=== PATIENT | female | born 1945 | race Caucasian/White ===

== ENCOUNTER → 2017-07-06 | Outpatient (CLI) | payer MEDICARE, OTHER ==
[~2017-07-06] MED LIST: ADJUSTABLE COMM1 MIS; AMBI12.5 PO; APIX2.5T PO; CPMMACHINE; DOCU1CAP39 PO; GLIP5TAB8 PO; GLUCTAB PO; HYDR-3580 PO; LINA145C PO; MAGN30S PO; METF1000 PO; METO25TA3 PO; MULT-207 PO; NAPR1TAB98 PO; OXYTOCIN 10 UNIT/ML AMP ONE; PROT40TA PO; TOPR25TA2 PO; VITA400C28 PO; WALKER WHEELS/F1 MIS
[2017-07-06 09:04] LABS: HEMATOCRIT 40.4 % (35.0-46.0); HEMOGLOBIN 13.4 GM/DL (11.6-15.3); MEAN CELL VOLUME 87.7 FL (80.0-100.0); MEAN CORPUSCULAR HEMOGLOBIN 29.1 PG (27.0-34.0); MEAN CORPUSCULAR HGB CONC 33.1 % (32.0-36.0); MEAN PLATELET VOLUME 8.5 FL (7.0-11.0); PLATELET COUNT 295 TH/MM3 (150-450); RED CELL DISTRIBUTION WIDTH 13.5 % (11.6-17.2); WHITE BLOOD COUNT 7.6 TH/MM3 (4.0-11.0)
[2017-07-06 09:11] LABS: PROTHROMBIN TIME - PATIENT 10.1 SEC (9.8-11.6)
[2017-07-06 09:35] LABS: ALBUMIN 3.4 GM/DL (3.4-5.0); ALT (GPT) 22 U/L (10-53); AST (GOT) 12 U/L (15-37); BLOOD UREA NITROGEN 12 MG/DL (7-18); CALCIUM 9.2 MG/DL (8.5-10.1); CHLORIDE 104 MEQ/L (98-107); GLOMERULAR FILTRATION RATE 82 ML/MIN (>89); GLUCOSE,FASTING 149 MG/DL (74-99); SODIUM (NA) 137 MEQ/L (136-145)
[2017-07-06 09:39] LABS: ALKALINE PHOSPHATASE 68 U/L (45-117); TOTAL BILIRUBIN ADULT 0.4 MG/DL (0.2-1.0); TOTAL PROTEIN 7.2 GM/DL (6.4-8.2)
[2017-07-06 10:46] LABS: BILIRUBIN, URINE NEG (NEG); BLOOD, URINE NEG (NEG); GLUCOSE,URINE NEG (NEG); KETONE, URINE NEG (NEG); NITRITE,URINE NEG (NEG); PH, URINE 5.5 (5.0-8.5); SQUAMOUS EPITHELIAL CELL URINE 1 /hpf (0-5); URINE COLOR LIGHT-YELLOW (YELLW/STRAW); URINE LEUKOCYTE ESTERASE NEG (NEG)
== END ==
LOC: CPRE 08:07
PROVIDERS: ATTEND Surgery
DX: Z01.812 Encounter for preprocedural laboratory examination (principal); M79.609 Pain in unspecified limb
CPT/HCPCS: 36415; 80053; 81001; 85027; 85610; 85730; J2590

== ENCOUNTER 2017-07-12 05:55 | Inpatient (IN) | payer MEDICARE, OTHER ==
--- NOTE | 2017-07-07 14:51 | MH ---
cc: Crow BRYANT M.D. DATE OF ADMISSION: 07/12/2017 ADMISSION DIAGNOSIS Osteoarthritic degeneration right knee, now being admitted for right total knee arthroplasty. HISTORY OF PRESENT ILLNESS This is a pleasant 72-year-old morbidly obese diabetic female who is being admitted today for right total knee arthroplasty due to severe painful osteoarthritic degeneration, right knee. OTHER PAST HISTORY She has a history of: 1. Anxiety. 2. Back pain. 3. Diabetes. 4. Previous history of cancer. 5. Arthritis. 6. Liver problems. 7. Hemorrhoids. CURRENT MEDICATIONS Include: 1. Glipizide. 2. Linzess. 3. Metoprolol. 4. Metformin. PREVIOUS SURGERIES Previous surgeries include cholecystectomy and hysterectomy. REVIEW OF SYSTEMS Noncontributory. FAMILY HISTORY Noncontributory. SOCIAL HISTORY She does not smoke or drink. ALLERGIES Has an allergy she thinks to CODEINE many years ago but she is not sure. PHYSICAL EXAMINATION GENERAL: We find a 72-year-old female morbidly obese, complaining of pain in right knee. VITAL SIGNS: Blood pressure 168/92, pulse 77 and regular, respirations 18, temperature 97.8, pulse oximetry 97% on room air. HEENT: Eyes PERRLA, EOMI. Ears, nose, mouth clear. NECK: Supple. LUNGS: Clear. HEART: Regular rate. ABDOMEN: Soft. Positive bowel sounds, nontender. EXTREMITIES: Reveal the right knee to be tender with crepitance throughout range of motion. Neurovascularly intact to her toes. IMPRESSION AT THIS TIME Severe painful osteoarthritic degeneration, right knee. PLAN Admission for right total knee arthroplasty today. The patient given prescription for postoperative pain and anticoagulation control in the office, understands to use Hibiclens scrub and Bactroban preoperatively and plans on going home after surgical stay in the hospital. MD SHIRA Stearns/HAILEY /2:01 PM /2:27 PM
[~2017-07-12] VITALS: Ht 165.1 cm; Wt 129.8 kg
[~2017-07-12 05:55] MED LIST changes: -ADJUSTABLE COMM1 MIS; -AMBI12.5 PO; -APIX2.5T PO; -CPMMACHINE; -DOCU1CAP39 PO; -GLUCTAB PO; -HYDR-3580 PO; -MAGN30S PO; -OXYTOCIN 10 UNIT/ML AMP ONE; -PROT40TA PO; -TOPR25TA2 PO; -VITA400C28 PO; -WALKER WHEELS/F1 MIS
[2017-07-12] MEDS ORDERED: VANCOMYCIN HCL 1000 MG VIAL ONE (06:30)
[2017-07-12] MEDS ORDERED: SODIUM CHLOR 0.9% 250 ML INJ 250 ML ONE ×2 (06:31→06:47)
[2017-07-12] MEDS ORDERED: ceFAZolin INJ 1,000 MG VIAL ONE (06:42)
[2017-07-12] MEDS ORDERED: DEXAMETHASONE SOD PHOS 20 MG/5 ML VIAL ONE (06:43)
[2017-07-12] MEDS ORDERED: SODIUM CHLORID 0.9% 500 ML IV PRN (06:45)
[2017-07-12] MEDS ORDERED: POVIDONE IODINE 5% (ANTISEPSIS KIT) 4 APPLICATIONS EACH NARE PRN (06:45)
[2017-07-12] MEDS ORDERED: METOPROLOL TARTRATE 25 MG TAB PO PRN (06:45)
[2017-07-12] MEDS ORDERED: ceFAZolin 2 GM PREMIX 50 ML IV SCH (06:45)
[2017-07-12] MEDS ORDERED: CHLORHEXIDINE GLUCONATE 2 % 1 PACK (2 CLOTHS) TOPICAL PRN (06:45)
[2017-07-12] MEDS ORDERED: LACTATED RINGER'S 1000 ML IV PRN (06:45)
[2017-07-12] MEDS ORDERED: CHLORHEXIDINE GLUCONATE 4% SOLN 120 ML BTL TOPICAL SCH (06:45)
[2017-07-12] MEDS ORDERED: VANCOMYCIN 1000 MG/NS 250 ML (for <70 kg) IV SCH ×2 (06:45)
[2017-07-12] MEDS ORDERED: BUPIVACAINE HCL PF 0.5% 30 ML VIAL ONE (07:21)
[2017-07-12] MEDS ORDERED: DEXAMETHASONE SOD PHOS PF 10 MG/ML VIAL ONE (07:21)
[2017-07-12] MEDS ORDERED: TRANEXAMIC ACID IV SCH ×2 (08:00→11:00)
[2017-07-12] MEDS ORDERED: EXPAREL PERI-ARTICULAR INJECTION (TOTAL VOL. 120 ML) P-ARTICULR SCH ×2 (08:00)
[2017-07-12] MEDS ORDERED: SODIUM CHLORIDE 0.9% IV SCH ×2 (08:00→11:00)
[2017-07-12] MEDS ORDERED: TOBRAMYCIN 1200 MG VIAL (ortho-sterile core) ONE (08:19)
--- NOTE | 2017-07-12 10:29 | HHI.FF ---
Face to Face Verification Diagnosis: (1) Status post total right knee replacement Physical Therapy Gait training Knee: Total knee, Protocol: Right, Full weight bearing Canvas Knee Splint: When in bed & 2 pillows btw thighs Nursing RN: 3 days/week x 2 weeks Nursing: Dressing changes Dressing Changes: Daily dressing change, Gauze, Paper tape I have seen patient Ivelisse Jimenez on 07/12/17. My clinical findings support the need for the requested home health care services because: Limited ability to care for self High risk of falls I certify that my clinical findings support that this patient is homebound because: Unsteady gait/balance Crow Rome MD Jul 12, 2017 10:29
[2017-07-12] MEDS ORDERED: TRANEXAMIC ACID INJ 0 MG in SODIUM CHLORIDE 0.9% INJ 100 ML IV SCH (10:30)
[2017-07-12] MEDS ORDERED: ONDANSETRON HCL 4 MG/2 ML VIAL IVP PRN (10:30)
[2017-07-12] MEDS ORDERED: diphenhydrAMINE HCL 50 MG/ML VIAL IV PUSH PRN (10:30)
[2017-07-12] MEDS ORDERED: ACETAMINOPHEN 325 MG TAB PO PRN (10:30)
[2017-07-12] MEDS ORDERED: TEMAZEPAM 15 MG CAP PO PRN (10:30)
[2017-07-12] MEDS ORDERED: NALOXONE HCL 0.4 MG/ML AMP IV PUSH PRN (10:30)
[2017-07-12] MEDS ORDERED: MORPHINE SULFATE 4 MG/ML INJ IV PUSH PRN (10:30)
[2017-07-12] MEDS ORDERED: WALKER WHEELS/F1 MIS (10:31)
[2017-07-12] MEDS ORDERED: CPMMACHINE (10:31)
[2017-07-12] MEDS ORDERED: ADJUSTABLE COMM1 MIS (10:31)
[2017-07-12] MEDS ORDERED: DO NOT ADM ANY ANTICOAGULANT DRUGS PRN (10:46)
[2017-07-12] MEDS ORDERED: MIDAZOLAM HCL 2 MG/2 ML VIAL ONE (10:50)
--- NOTE | 2017-07-12 10:52 | MP ---
cc: Crow ROME M.D. DATE OF SURGERY 07/12/2017 PREOPERATIVE DIAGNOSIS Osteoarthritic degeneration right knee. POSTOPERATIVE DIAGNOSIS Osteoarthritic degeneration right knee. SURGERY PERFORMED Right total knee arthroplasty using Consensus components size 4 femur, 3 tibia, 10 insert and size 2 patella, two batches of antibiotic impregnated cement and a lateral retinacular release and an extra hour of time needed for exposure and sewing the patient as the patient is morbidly obese. SURGEON Dr. Rome MAKE UP ARTIST ELIAS Pacheco ANESTHESIA General intubation and block PROCEDURE WAS FOLLOWS After successful induction of anesthesia, the patient is placed on the operating room table in the supine position. The knee is prepped and draped in the usual manner. A tourniquet is inflated at the upper thigh and set to 300 mmHg pressure after exsanguination of the lower extremity. A longitudinal incision is made extending from 3 inches proximal to the superior pole of the patella, across the patella in longitudinal fashion, and down past the insertion of the tibial tubercle into the proximal tibia. The incision is carried down through subcutaneous tissue along the medial aspect of the patella and retinaculum, down through the capsule to expose the knee joint. The patella and patellar tendon are freed up enough to allow the patella to be inverted and retracted off the lateral side of the knee joint. The knee joint is left exposed. Small osteophytes are removed. All soft tissue is removed to allow proper position of the femoral and tibial cutting jig guide. The first femoral jig is then inserted along the distal end of the femur after first measuring to decide whether this is a small, medium, or large component. The notch is then drilled and the tibial cutting guide inserted into the femoral cutting guide, along with the ankle brace to allow for proper measurement of the tibial cutting surface that needed to be resected. Pins are inserted into the tibial cutting jig and femoral cutting jig to hold them in place. An oscillating saw is then used to resect the surface of the tibia. The surface of the tibia is then completely removed using sharp and blunt dissection. The anterior and posterior cuts of the femur are then made as well using an oscillating saw through the cutting guide. All guides are then removed and the varus/valgus angulation cutting guide applied to the femur for proper measurement of the proper amount of valgus. The anterior cutting guide for the femur is then inserted at the anterior femoral cuts made. Next, the first block trial is inserted into the femur to allow for proper condyle drill holes to be made which are then made followed by removal of the bone between the condyles using an oscillating saw as well as the bone removed at the most posterior surface of the condyle. After this, this guide is removed and the chamfer cuts made using the chamfer cutting guide from both anterior and posterior. Next, the femoral trial is then inserted, the tibial surface reflected anterior to expose the tibial surface and a tibial stem guide is inserted after first measuring for a standard, standard plus, large, or large plus surface to be used. After the stem is impacted the trial tibial surface is applied followed by the trial meniscal components. After full range of motion is found with the appropriate length meniscal components varying the patella is prepared by resecting the posterior aspect of the patella using an oscillating saw, inserting a trial. The trial is then removed and the cruciate cutting guide applied using the bur to cut the cruciate cuts. After cruciate cuts are made all trials are removed. The wound is irrigated copiously with antibiotic solution and Water-Pik and the actual components inserted into place using the aforementioned components. After the cement has hardened and the components are found to have full range of motion with no instability. Tourniquet deflated total tourniquet time being 55 minutes at 300 mmHg pressure. 120 cc of Exparel used around the knee joint for extra pain control. Deep fascia approximated with running #2 Quill, subcutaneous tissue approximated in many layers with interrupted 2-0 and 3-0 Monocryl sutures and Steri-Strips. Sterile dressing and knee immobilizer. No drain utilized. Estimated blood loss was 100 cc's. The sponge and suture counts were correct. The patient tolerated the procedure well and left the operating room in satisfactory condition. One hour of extra time was needed as this patient was morbidly obese and needed quite a bit of extra exposure, lateral retinacular release and closure in multiple layers. ELIAS Pacheco was present throughout the procedure to include patient positioning and the procedure. The medical necessity of the nurse practitioner as a sales assistants and salespersons was indicated in this case due to the surgical complexity of the case itself. During the surgical case, the surgical scrub technician was working the back table while my surgical supplies sterilizer, ELIAS was directly assisting me. J. MD SHIRA Kauffman/DJL /10:20 AM /10:28 AM
[2017-07-12] MEDS ORDERED: *PROMETHAZINE 25 MG/ML VIAL PERIprocedural use ONLY ONE (11:01)
--- NOTE | 2017-07-12 11:05 | HHI.PR ---
Immediate Post Op Note Procedure Date: Jul 12, 2017 Pre Op Diagnosis: severe painful osteoarthritic degeneration, right knee. Post Op Diagnosis: Osteoarthritic degeneration of Right knee Surgeon: Crow Rome MD Boiler Fireman(s): Rain GRIFFIN Procedure: Right Total Knee Arthroplasty Complications: none Specimen(s) removed: none Estimated blood loss: 100 cc Anesthesia: General Drains: None IVF Urinary Output (mLs): 0 (no llanos) Tourniquet time (min at mmHg) 55 mins at 300 mmHg Patient Condition: Good Implant/Devices: SEE IMPLANT LOG (if applicable) Date/Time of Procedure: SEE SURGICAL CARE RECORD [place] Jul 12, 2017 11:05
--- NOTE | 2017-07-12 11:18 | RADRPT ---
EXAM DATE/TIME: 07/12/2017 11:08 [facility] COMPARISON: No previous studies available for comparison. INDICATIONS : Post op total right knee. MEDICAL HISTORY : None. SURGICAL HISTORY : Cholecystectomy. ENCOUNTER: Initial ACUITY: 1 day PAIN SCORE: 9/10 LOCATION: Right Knee FINDINGS: AP and lateral views of the knee following arthroplasty reveals a prosthesis in anatomic alignment. F racture is not appreciated. Surgical drain is evident CONCLUSION: Status post total knee arthroplasty. Garrett Fernandez MD FACR on July 12, 2017 at 11:16 Board Certified Radiologist. This report was verified electronically.
[2017-07-12] MEDS: LACTATED RINGER'S 1000 ML INJ 1,000 ML IV SCH ×2 (11:30→21:03)
[2017-07-12] MEDS ORDERED: *morphine SULFATE 10 MG/ML PERIprocedure ONLY ONE (11:40)
[2017-07-12] MEDS ORDERED: ROCURONIUM INJ 50 MG/5 ML SYRINGE IV PUSH ONE (12:00)
[2017-07-12] MEDS ORDERED: ONDANSETRON HCL 4 MG/2 ML VIAL IV ONE (12:00)
[2017-07-12] MEDS ORDERED: LIDOCAINE HCL 1% PF 5 ML SYRINGE OTHER ONE (12:00)
[2017-07-12] MEDS ORDERED: GLYCOPYRROLATE 1 MG/5 ML SYRINGE IV PUSH ONE (12:00)
[2017-07-12] MEDS ORDERED: PROPOFOL 200 MG/20 ML AMP IV ONE (12:00)
[2017-07-12] MEDS ORDERED: Post-op Orders (for Pharmacy) XX ONE (12:00)
[2017-07-12] MEDS ORDERED: NEOSTIGMINE 5 MG/5 ML SYRINGE IV PUSH ONE (12:00)
--- NOTE | 2017-07-12 12:34 | PD.CONS ---
[facility] By [facility] surgery Reason for Consult Medical management Primary Care Physician Francesco Weaver M.D. Diagnoses: History of Present Illness 72-year-old female with a past medical history of severe right knee osteoarthritis, hypertension, diabetes type 2 who despite medical management and corticosteroid injections continue to have severe right knee pain affecting her daily living of activity; she was taken to the OR today and underwent Right total knee arthroplasty.[facility] was consulted for medical management.Patient was seen in PACU and denied any SOB or chest pain.State she will have the left knee done sometimes in the future after she recovers from this current operation. There is no report of GI bleed. Review of Systems Except as stated in HPI: all other systems reviewed are Neg Past Family Social History Allergies: Coded Allergies: adhesive (Unverified Allergy, Severe, RASH, 07/12/17) codeine (Verified Allergy, Severe, NAUSEA VOMITING, 07/12/17) Past Medical History Severe right knee OA Diabetes type 2 Hypertension Past Surgical History Right total knee arthroplasty Reported Medications See EMR Family History Noncontributory Social History There is no report of tobacco, alcohol or easy drug intake Physical Exam Vital Signs Vital Signs Date Time Temp Pulse Resp B/P (MAP) Pulse Ox O2 Delivery O2 Flow Rate FiO2 07/12/17 12:00 97.5 78 16 140/65 (90) 95 Nasal Cannula 3 07/12/17 11:45 77 16 146/64 (91) 94 Nasal Cannula 3 07/12/17 11:45 15 07/12/17 11:30 76 15 151/71 (97) 94 Nasal Cannula 3 07/12/17 11:15 75 15 156/69 (98) 98 Nasal Cannula 4 07/12/17 11:00 77 15 167/75 (105) 95 Nasal Cannula 4 07/12/17 10:45 97.6 75 20 177/71 (106) 93 Nasal Cannula 4 07/12/17 06:49 98.9 72 18 148/69 (95) 96 Physical Exam GENERAL: This is a well-nourished, well-developed patient, in no apparent distress. SKIN: No rashes, ecchymoses or lesions. Cool and dry. HEAD: Atraumatic. Normocephalic. No temporal or scalp tenderness. EYES: Pupils equal round and reactive. Extraocular motions intact. No scleral icterus. No injection or drainage. ENT: Nose without bleeding, purulent drainage or septal hematoma. Throat without erythema, tonsillar hypertrophy or exudate. Uvula midline. Airway patent. NECK: Trachea midline. No JVD or lymphadenopathy. Supple, nontender, no meningeal signs. CARDIOVASCULAR: Regular rate and rhythm without murmurs, gallops, or rubs. RESPIRATORY: Clear to auscultation. Breath sounds equal bilaterally. No wheezes , rales, or rhonchi. GASTROINTESTINAL: Abdomen soft, non-tender, nondistended. No hepato-splenomegaly , or palpable masses. No guarding. MUSCULOSKELETAL: Extremities without clubbing, cyanosis, or edema. Right knee repair, neurovascular intact NEUROLOGICAL: Awake and alert. Cranial nerves II through XII intact. Motor and sensory grossly within normal limits. Five out of 5 muscle strength in all muscle groups. Normal speech. Imaging Last Impressions Knee X-Ray 07/12/17 1024 Signed Impressions: Service Date/Time: Wednesday, July 12, 2017 11:08 - CONCLUSION: Status post total knee arthroplasty. Garrett Fernandez MD FACR Assessment and Plan Assessment and Plan 72-year-old female with Right knee severe osteoarthritis s/p Right total knee arthroplasty Management per orthopedic surgery Continue current postop care PT consult to treat and eval Diabetes type 2 Continue with metformin Hypertension Continue with Lopressor DVT prophylaxis: Eliquis Code Status Full code Justice Guzmán MD Jul 12, 2017 12:34
[2017-07-12] MEDS: metFORMIN HCL 500 MG TAB PO SCH (16:53)
[2017-07-12] MEDS: ACETAMINOPHEN/HYDROcodone 325 MG/7.5 MG TAB PO PRN ×2 (16:55→21:02)
[2017-07-12 19:15] VITALS: BP 135/70; PULSE 83; RESP 18; TEMP 97; O2SAT 95
[2017-07-12 22:01] VITALS: O2SAT 95
[2017-07-13] VITALS (8 sets, daily range): BP systolic 117–170; BP diastolic 59–68; PULSE 77–96; RESP 17–18; TEMP 97–99.3; O2SAT 95–98
[2017-07-13] MEDS: LACTATED RINGER'S 1000 ML INJ 1,000 ML IV SCH ×2 (03:08→19:32)
[2017-07-13] MEDS: ACETAMINOPHEN/HYDROcodone 325 MG/7.5 MG TAB PO PRN ×5 (04:07→23:33)
[2017-07-13 06:24] LABS: HEMATOCRIT 36.2 % (35.0-46.0); HEMOGLOBIN 11.7 GM/DL (11.6-15.3)
[2017-07-13] MEDS: metFORMIN HCL 500 MG TAB PO SCH ×2 (07:48→17:45)
[2017-07-13] MEDS: glipiZIDE 5 MG TAB PO SCH (07:48)
[2017-07-13] MEDS: METOPROLOL TARTRATE 25 MG TAB PO SCH (07:49)
[2017-07-13] MEDS: LINZESS 145 MCG PO SCH (07:57)
[2017-07-13] MEDS ORDERED: MULTIVITAMIN TAB PO SCH (09:00)
[2017-07-13] MEDS: APIXABAN 2.5 MG TABLET PO SCH ×2 (09:31→19:36)
--- NOTE | 2017-07-13 10:55 | HHI.PR ---
Subjective Remarks Patient seen and examined He complains of mild right knee soreness, otherwise stable. Taking by mouth without any competition nausea and vomiting Afebrile Objective Vitals Vital Signs Date Time Temp Pulse Resp B/P (MAP) Pulse Ox O2 Delivery O2 Flow Rate FiO2 07/13/17 10:31 18 07/13/17 10:26 96 07/13/17 08:00 97.6 82 17 143/68 (93) 96 07/13/17 05:10 97.4 77 18 130/59 (82) 95 07/13/17 01:00 97.0 77 17 117/61 (79) 98 07/12/17 22:01 95 home CPAP 21 07/12/17 19:15 97.0 83 18 135/70 (91) 95 07/12/17 15:20 97.6 80 16 130/68 (88) 95 Room Air 07/12/17 15:00 79 16 128/65 (86) 94 Room Air 07/12/17 14:00 78 16 132/66 (88) 98 Nasal Cannula 3 07/12/17 13:00 79 16 136/70 (92) 96 Nasal Cannula 3 07/12/17 12:00 97.5 78 16 140/65 (90) 95 Nasal Cannula 3 07/12/17 11:45 77 16 146/64 (91) 94 Nasal Cannula 3 07/12/17 11:45 15 07/12/17 11:30 76 15 151/71 (97) 94 Nasal Cannula 3 07/12/17 11:15 75 15 156/69 (98) 98 Nasal Cannula 4 07/12/17 11:00 77 15 167/75 (105) 95 Nasal Cannula 4 I/O 07/12/17 07/12/17 07/12/17 07/13/17 07/13/17 07/13/17 06:59 14:59 22:59 06:59 14:59 22:59 Intake Total 1812.98 ml 1140 ml 1740 ml Output Total 3101 ml Balance -1288.02 ml 1140 ml 1740 ml Intake Oral 720 ml 720 ml IV Total 1812.98 ml 420 ml 1020 ml Output Stool Total 1 ml Estimated Blood Loss 100 ml Other 3000 ml # Voids 1 3 5 # Bowel Movements 0 0 Result Diagram: 07/13/17 0453 Imaging Last Impressions Knee X-Ray 07/12/17 1024 Signed Impressions: Service Date/Time: Wednesday, July 12, 2017 11:08 - CONCLUSION: Status post total knee arthroplasty. Garrett Fernandez MD FACR Objective Remarks GENERAL: NAD SKIN: Warm and dry. HEAD: Normocephalic. EYES: No scleral icterus. No injection or drainage. NECK: Supple, trachea midline. No JVD or lymphadenopathy. CARDIOVASCULAR: Regular rate and rhythm without murmurs, gallops, or rubs. RESPIRATORY: Breath sounds equal bilaterally. No accessory muscle use. GASTROINTESTINAL: Abdomen soft, non-tender, nondistended. MUSCULOSKELETAL: No cyanosis, or edema. Right knee repair, neurovascular intact BACK: Nontender without obvious deformity. No CVA tenderness. Procedures Right total knee arthroplasty A/P Assessment and Plan 72-year-old female with Right knee severe osteoarthritis s/p Right total knee arthroplasty Management per orthopedic surgery Continue current postop care, pain management accordingly PT to treat and eval Diabetes type 2 Continue with metformin Hypertension Continue with Lopressor DVT prophylaxis: Justice Allen MD Jul 13, 2017 10:55
--- NOTE | 2017-07-13 11:57 | PD.ORT.PN ---
Subjective Subjective Remarks Pt painful today. Objective Vitals Vital Signs Date Time Temp Pulse Resp B/P (MAP) Pulse Ox O2 Delivery O2 Flow Rate FiO2 07/13/17 10:31 18 07/13/17 10:26 96 07/13/17 08:00 97.6 82 17 143/68 (93) 96 07/13/17 05:10 97.4 77 18 130/59 (82) 95 07/13/17 01:00 97.0 77 17 117/61 (79) 98 07/12/17 22:01 95 home CPAP 21 07/12/17 19:15 97.0 83 18 135/70 (91) 95 07/12/17 15:20 97.6 80 16 130/68 (88) 95 Room Air 07/12/17 15:00 79 16 128/65 (86) 94 Room Air 07/12/17 14:00 78 16 132/66 (88) 98 Nasal Cannula 3 07/12/17 13:00 79 16 136/70 (92) 96 Nasal Cannula 3 07/12/17 12:00 97.5 78 16 140/65 (90) 95 Nasal Cannula 3 I/O 07/12/17 07/12/17 07/12/17 07/13/17 07/13/17 07/13/17 07:00 15:00 23:00 07:00 15:00 23:00 Intake Total 1812.98 ml 1140 ml 1740 ml Output Total 3101 ml Balance -1288.02 ml 1140 ml 1740 ml Intake Oral 720 ml 720 ml IV Total 1812.98 ml 420 ml 1020 ml Output Stool Total 1 ml Estimated Blood Loss 100 ml Other 3000 ml # Voids 1 3 5 # Bowel Movements 0 0 Result Diagram: 07/13/17 0453 Objective Remarks Dressing dry and intact. No calf tenderness. NV intact to toes. In bed at present time. Assessment & Plan Ortho Post Op Day #: 1 Problem List: Assessment and Plan OOB, PT, wound care, home soon. Crow Rome MD Jul 13, 2017 11:57
[2017-07-13] MEDS: DOCUSATE SODIUM 100 MG CAP PO SCH (19:36)
[2017-07-13] MEDS: MULTIVITAMINS/MINERALS THERAPEUTIC TAB PO SCH (19:36)
[2017-07-14] VITALS (7 sets, daily range): BP systolic 133–159; BP diastolic 59–78; PULSE 71–99; RESP 17–18; TEMP 96.8–98.9; O2SAT 9–97
[2017-07-14] MEDS: ACETAMINOPHEN/HYDROcodone 325 MG/7.5 MG TAB PO PRN ×5 (03:33→20:24)
[2017-07-14] MEDS: MAGNESIUM HYDROXIDE SUSP 30 ML CUP PO PRN (06:03)
[2017-07-14 07:13] LABS: HEMATOCRIT 35.2 % (35.0-46.0); HEMOGLOBIN 11.8 GM/DL (11.6-15.3)
[2017-07-14] MEDS: MULTIVITAMINS/MINERALS THERAPEUTIC TAB PO SCH ×2 (07:41→20:23)
[2017-07-14] MEDS: DOCUSATE SODIUM 100 MG CAP PO SCH ×2 (07:42→20:23)
[2017-07-14] MEDS: glipiZIDE 5 MG TAB PO SCH (07:42)
[2017-07-14] MEDS: APIXABAN 2.5 MG TABLET PO SCH ×2 (07:42→20:23)
[2017-07-14] MEDS: metFORMIN HCL 500 MG TAB PO SCH ×2 (07:42→16:12)
[2017-07-14] MEDS: METOPROLOL TARTRATE 25 MG TAB PO SCH (07:43)
[2017-07-14] MEDS ORDERED: HYDR-3580 PO (07:54)
--- NOTE | 2017-07-14 07:56 | PD.ORT.PN ---
Subjective Subjective Remarks Pt painful today. Objective Vitals Vital Signs Date Time Temp Pulse Resp B/P (MAP) Pulse Ox O2 Delivery O2 Flow Rate FiO2 07/14/17 03:55 98.9 91 18 151/59 (89) 9 07/13/17 23:25 98.4 90 18 170/68 (102) 96 07/13/17 20:20 99.3 96 18 146/65 (92) 97 07/13/17 16:00 97.8 85 17 145/59 (87) 95 07/13/17 14:46 18 07/13/17 12:00 97.5 79 17 125/63 (83) 98 07/13/17 10:26 96 07/13/17 08:00 97.6 82 17 143/68 (93) 96 I/O 07/13/17 07/13/17 07/13/17 07/14/17 07/14/17 07/14/17 07:00 15:00 23:00 07:00 15:00 23:00 Intake Total 1740 ml 480 ml 360 ml 360 ml Balance 1740 ml 480 ml 360 ml 360 ml Intake Oral 720 ml 480 ml 360 ml 360 ml IV Total 1020 ml # Voids 5 3 1 3 # Bowel Movements 0 0 0 0 Result Diagram: 07/14/17 0700 Objective Remarks Dressing dry and intact. No calf tenderness. NV intact to toes. In bed at present time. Assessment & Plan Ortho Post Op Day #: 2 Problem List: Assessment and Plan OOB, PT, wound care, SNF soon. Crow Rome MD Jul 14, 2017 07:56
[2017-07-14] MEDS ORDERED: APIX2.5T PO ×2 (08:07→08:08)
[2017-07-14] MEDS: LINZESS 145 MCG PO SCH (09:00)
[2017-07-14] MEDS ORDERED: BACITRACIN OINT 0.9 GM PKT TOP PRN (10:15)
[2017-07-14] MEDS: LACTATED RINGER'S 1000 ML INJ 1,000 ML IV SCH (12:24)
--- NOTE | 2017-07-14 13:32 | HHI.PR ---
Subjective Remarks Patient seen and examined States she had a bad day yesterday after physical therapy, however now feeling much better Patient states she would like to be discharged to SNF Objective Vitals Vital Signs Date Time Temp Pulse Resp B/P (MAP) Pulse Ox O2 Delivery O2 Flow Rate FiO2 07/14/17 12:00 96.8 90 18 133/70 (91) 95 07/14/17 11:57 93 07/14/17 08:43 18 07/14/17 08:00 96.8 71 18 137/67 (90) 93 07/14/17 03:55 98.9 91 18 151/59 (89) 9 07/13/17 23:25 98.4 90 18 170/68 (102) 96 07/13/17 20:20 99.3 96 18 146/65 (92) 97 07/13/17 16:00 97.8 85 17 145/59 (87) 95 07/13/17 14:46 18 I/O 07/13/17 07/13/17 07/13/17 07/14/17 07/14/17 07/14/17 07:00 15:00 23:00 07:00 15:00 23:00 Intake Total 1740 ml 480 ml 360 ml 360 ml Balance 1740 ml 480 ml 360 ml 360 ml Intake Oral 720 ml 480 ml 360 ml 360 ml IV Total 1020 ml # Voids 5 3 1 3 # Bowel Movements 0 0 0 0 Result Diagram: 07/14/17 0700 Imaging Last Impressions Knee X-Ray 07/12/17 1024 Signed Impressions: Service Date/Time: Wednesday, July 12, 2017 11:08 - CONCLUSION: Status post total knee arthroplasty. Garrett Fernandez MD FACR Objective Remarks GENERAL: NAD SKIN: Warm and dry. HEAD: Normocephalic. EYES: No scleral icterus. No injection or drainage. NECK: Supple, trachea midline. No JVD or lymphadenopathy. CARDIOVASCULAR: Regular rate and rhythm without murmurs, gallops, or rubs. RESPIRATORY: Breath sounds equal bilaterally. No accessory muscle use. GASTROINTESTINAL: Abdomen soft, non-tender, nondistended. MUSCULOSKELETAL: No cyanosis, or edema. Right knee repair, neurovascular intact BACK: Nontender without obvious deformity. No CVA tenderness. Procedures Right total knee arthroplasty A/P Assessment and Plan 72-year-old female with Right knee severe osteoarthritis s/p Right total knee arthroplasty Management per orthopedic surgery Continue current postop care, pain management accordingly PT to treat and eval Diabetes type 2 Continue with metformin Hypertension Continue with Lopressor DVT prophylaxis: Justice Allen MD Jul 14, 2017 13:32
[2017-07-15 00:20] VITALS: BP 132/60; PULSE 86; RESP 17; TEMP 97; O2SAT 95
[2017-07-15] MEDS: ACETAMINOPHEN/HYDROcodone 325 MG/7.5 MG TAB PO PRN ×4 (00:24→14:13)
[2017-07-15] MEDS: LACTATED RINGER'S 1000 ML INJ 1,000 ML IV SCH ×2 (00:54→08:51)
[2017-07-15 08:00] VITALS: BP 148/79; PULSE 94; RESP 18; TEMP 97.1; O2SAT 97
--- NOTE | 2017-07-15 08:34 | PD.ORT.PN ---
Subjective Subjective Remarks Patient comfortable today without complaints. Objective Vitals Vital Signs Date Time Temp Pulse Resp B/P (MAP) Pulse Ox O2 Delivery O2 Flow Rate FiO2 07/15/17 00:20 97.0 86 17 132/60 (84) 95 07/14/17 20:00 94 Room Air 07/14/17 19:30 97.8 99 17 141/78 (99) 94 07/14/17 17:45 97 21 07/14/17 17:12 18 07/14/17 16:00 98.5 93 18 159/74 (102) 97 07/14/17 12:00 96.8 90 18 133/70 (91) 95 07/14/17 11:57 93 I/O 07/14/17 07/14/17 07/14/17 07/15/17 07/15/17 07/15/17 07:00 15:00 23:00 07:00 15:00 23:00 Intake Total 360 ml 1280 ml 360 ml Balance 360 ml 1280 ml 360 ml Intake Oral 360 ml 1280 ml 360 ml # Voids 3 10 2 # Bowel Movements 0 0 0 Result Diagram: 07/14/17 0700 Objective Remarks Dressing dry and intact. No calf tenderness. NV intact to toes. In chair at present time. Assessment & Plan Ortho Post Op Day #: 3 Problem List: Assessment and Plan OOB, PT, wound care, SNF today. Appointment in office next week. Crow Rome MD Jul 15, 2017 08:34
--- NOTE | 2017-07-15 08:37 | HHI.DS ---
Discharge Summary Admission Date Jul 12, 2017 at 05:55 Discharge Date: Jul 15, 2017 Admitting Diagnosis Osteoarthritic degeneration right knee. Diagnosis: (1) Status post total right knee replacement Diagnosis: Principal ICD Codes: Z96.651 - Presence of right artificial knee joint Brief History This is a 72 year old female patient CBC/BMP: 07/14/17 0700 Significant Findings Laboratory Tests Test 07/13/17 04:53 07/14/17 07:00 PE at Discharge Dressing dry and intact. No calf tenderness. NV intact to toes. In chair at present time. Hospital Course This patient underwent a right total knee arthroplasty on day of admission. She received a course of prophylactic IV antibiotics and within 23 hours started on anticoagulation therapy. She continued to improve remaining afebrile with stable vital signs. She began out of bed tolerating food and fluid well in physical therapy and daily wound care. She continued to improve and tolerated by mouth pain meds and was discharged on third postoperative day to assisted facility for continuation of care in good condition with instructions for follow-up appointment in the office. Pt Condition on Discharge: Good Discharge Disposition: Discharge to SNF Discharge Instructions Diet Instructions: As Tolerated, No Restrictions Activities You Can Perform: Full Weight Bearing, Shower Only-No Bath Activities to Avoid: Bathing, Driving Crow Rome MD Jul 15, 2017 08:37
[2017-07-15] MEDS: METOPROLOL TARTRATE 25 MG TAB PO SCH (08:49)
[2017-07-15] MEDS: MULTIVITAMINS/MINERALS THERAPEUTIC TAB PO SCH (08:49)
[2017-07-15] MEDS: metFORMIN HCL 500 MG TAB PO SCH ×2 (08:49→16:41)
[2017-07-15] MEDS: APIXABAN 2.5 MG TABLET PO SCH (08:49)
[2017-07-15] MEDS: glipiZIDE 5 MG TAB PO SCH (08:49)
[2017-07-15] MEDS: MAGNESIUM HYDROXIDE SUSP 30 ML CUP PO PRN (08:49)
[2017-07-15] MEDS: LINZESS 145 MCG PO SCH (08:50)
[2017-07-15] MEDS: DOCUSATE SODIUM 100 MG CAP PO SCH (08:51)
[2017-07-15 10:21] VITALS: O2SAT 97
[2017-07-15 12:00] VITALS: BP 130/72; PULSE 90; RESP 18; TEMP 97.4; O2SAT 97
--- NOTE | 2017-07-15 12:18 | HHI.PR ---
Subjective Remarks NO NEW COMPLAINTS STILL HAVING CONSTIPATION BUT TOOK HER HOME LIZNESS FOR CONSTIPATION PATIENT EXPECTS TO HAVE A BM TODAY WANTS TO GO TO SNF LATER FOR REHAB CLEARED BY ORTHO MEDICALLY CLEARED FOR DISCHARGE TO SNF WHEN BED AVAILABLE Objective Vitals Vital Signs Date Time Temp Pulse Resp B/P (MAP) Pulse Ox O2 Delivery O2 Flow Rate FiO2 07/15/17 10:21 97 07/15/17 08:00 97.1 94 18 148/79 (102) 97 07/15/17 00:20 97.0 86 17 132/60 (84) 95 07/14/17 20:00 94 Room Air 07/14/17 19:30 97.8 99 17 141/78 (99) 94 07/14/17 17:45 97 21 07/14/17 17:12 18 07/14/17 16:00 98.5 93 18 159/74 (102) 97 I/O 07/14/17 07/14/17 07/14/17 07/15/17 07/15/17 07/15/17 07:00 15:00 23:00 07:00 15:00 23:00 Intake Total 360 ml 1280 ml 360 ml Balance 360 ml 1280 ml 360 ml Intake Oral 360 ml 1280 ml 360 ml # Voids 3 10 2 # Bowel Movements 0 0 0 Result Diagram: 07/14/17 0700 Other Results Laboratory Tests Test 07/13/17 04:53 07/14/17 07:00 Hemoglobin 11.7 GM/DL 11.8 GM/DL Hematocrit 36.2 % 35.2 % Imaging Last Impressions Knee X-Ray 07/12/17 1024 Signed Impressions: Service Date/Time: Wednesday, July 12, 2017 11:08 - CONCLUSION: Status post total knee arthroplasty. Garrett Fernandez MD FACR Objective Remarks GENERAL: AWAKE AND ALERT ORIENTED X3 TALKATIVE SKIN: Warm and dry. HEAD: Atraumatic. Normocephalic. EYES: Pupils equal and round. No scleral icterus. No injection or drainage. EOMI ENT: No nasal bleeding or discharge. Mucous membranes pink and moist. TONGUE MIDLINE NECK: Trachea midline. No JVD. SUPPLE CARDIOVASCULAR: Regular rate and rhythm. S1, S2 NO S3 OR S4 RESPIRATORY: No accessory muscle use. Clear to auscultation. Breath sounds equal bilaterally. GASTROINTESTINAL: Abdomen soft, non-tender, nondistended. Hepatic and splenic margins not palpable. OBESE MUSCULOSKELETAL: Extremities without clubbing, cyanosis, or edema. No obvious deformities. RIGHT KNEE TENDER NEUROLOGICAL: Awake and alert. No obvious cranial nerve deficits. Motor grossly within normal limits. 4 out of 5 muscle strength in the arms and legs. Normal speech. PSYCHIATRIC: Appropriate mood and affect; insight and judgment normal. Procedures Right total knee arthroplasty Medications and IVs Current Medications Lactated Ringer's 1,000 ml @ 30 mls/hr Q24H PRN IV SEE LABEL COMMENTS Last administered on 07/12/17at 06:54; Start 07/12/17 at 06:45; Stop 07/12/17 at 10:41; Status DC Sodium Chloride 500 ml @ 30 mls/hr [id number] PRN IV SEE LABEL COMMENTS; Start 07/12/17 at 06:45; Stop 07/12/17 at 10:41; Status DC Metoprolol Tartrate (Lopressor) 25 mg CASE PACKER PRN PO SEE LABEL COMMENTS; Start 07/12/17 at 06:45; Stop 07/15/17 at 06:44; Status DC Povidone Iodine (Betadine 5% Antisepsis Kit) 1 applic CASE PACKER PRN EACH NARE SEE LABEL COMMENTS Last administered on 07/12/17at 06:54; Start 07/12/17 at 06:45; Stop 07/15/17 at 06:44; Status DC Chlorhexidine Gluconate (Chlorhexidine 2% Cloth) 3 pack CASE PACKER PRN TOPICAL SEE LABEL COMMENTS Last administered on 07/12/17at 06:54; Start 07/12/17 at 06:45; Stop 07/15/17 at 06:44; Status DC Vancomycin HCl (Vancomycin Inj) 1,000 mg STK-MED ONCE .ROUTE ; Start 07/12/17 at 06:30; Stop 07/12/17 at 06:31; Status DC Chlorhexidine Gluconate (Hibiclens 4% Top Soln) 1 applic ONCE TOPICAL Last administered on 07/12/17at 06:54; Start 07/12/17 at 06:45; Stop 07/15/17 at 06:44; Status DC Cefazolin Sodium/ Dextrose 50 ml @ 100 mls/hr CASE PACKER IV Last administered on 07/12/17at 08:50; Start 07/12/17 at 06:45; Stop 07/12/17 at 10:48; Status DC Vancomycin HCl 1000 mg/Sodium Chloride 250 ml @ 250 mls/hr CASE PACKER IV Last administered on 07/12/17at 07:43; Start 07/12/17 at 06:45; Stop 07/15/17 at 06:44; Status DC Tranexamic Acid 1298 mg/Sodium Chloride 112.98 ml @ 200 mls/ hr ONCE IV Last administered on 07/12/17at 08:51; Start 07/12/17 at 08:00; Stop 07/12/17 at 14:00; Status DC Tranexamic Acid 1298 mg/Sodium Chloride 112.98 ml @ 200 mls/ hr ONCE IV Last administered on 07/12/17at 11:13; Start 07/12/17 at 11:00; Stop 07/12/17 at 12:00; Status DC Bupivacaine Liposome 20 ml/ Sodium Chloride 120 ml @ 240 mls/hr ONCE P- ARTICULR Last administered on 07/12/17at 09:53; Start 07/12/17 at 08:00; Stop 07/12 at 14:00; Status DC Sodium Chloride 250 ml @ As Directed STK-MED ONCE .ROUTE ; Start 07/12/17 at 06: 31; Stop 07/12/17 at 06:32; Status DC Cefazolin Sodium (Ancef Inj) 2,000 mg STK-MED ONCE .ROUTE Last administered on 07/12/17at 08:48; Start 07/12/17 at 06:42; Stop 07/12/17 at 06:43; Status DC Dexamethasone Sodium Phosphate (Decadron Inj) 20 mg STK-MED ONCE .ROUTE Last administered on 07/12/17at 08:08; Start 07/12/17 at 06:43; Stop 07/12/17 at 06:44; Status DC Sodium Chloride 250 ml @ As Directed STK-MED ONCE .ROUTE ; Start 07/12/17 at 06: 47; Stop 07/12/17 at 06:48; Status DC Dexamethasone Sodium Phosphate (Decadron Pf Inj) 10 mg STK-MED ONCE .ROUTE ; Start 07/12/17 at 07:21; Stop 07/12/17 at 07:22; Status DC Bupivacaine HCl (Marcaine Pf 0.5% Inj) 30 ml STK-MED ONCE .ROUTE ; Start at 07:21; Stop 07/12/17 at 07:22; Status DC Tobramycin Sulfate (Nebcin Inj) 1,200 mg STK-MED ONCE .ROUTE ; Start 07/12/17 at 08:19; Stop 07/12/17 at 08:20; Status DC Glipizide (Glucotrol) 5 mg DAILY PO Last administered on 07/15/17at 08:49; Start 07/13/17 at 09:00 Metformin HCl (Glucophage) 1,000 mg BIDPC PO Last administered on 07/15/17at 08: 49; Start 07/12/17 at 18:00 Metoprolol Tartrate (Lopressor) 25 mg DAILY PO Last administered on 07/15/17at 08:49; Start 07/13/17 at 09:00 Multivitamins (Theragran) 1 tab DAILY PO ; Start 07/13/17 at 09:00; Stop 07/13/17 at 09:00; Status DC Patient Own Medication PT OWN MED: LINZ... DAILY PO Last administered on at 08:50; Start 07/13/17 at 09:00 Lactated Ringer's 1,000 ml @ 80 mls/hr [id number] IV Last administered on at 03:08; Start 07/12/17 at 10:24 Cefazolin Sodium 1000 mg/Sodium Chloride 100 ml @ 200 mls/hr Q6H IV Last administered on 07/13/17at 03:05; Start 07/12/17 at 15:00; Stop 07/13/17 at 03:29; Status DC Miscellaneous Information (Post-op Orders (for Pharmacy)) STAT ONCE XX ; Start 07/12/17 at 12:00; Stop 07/12/17 at 12:01; Status DC Acetaminophen/ Hydrocodone Bitart ([place] 7.5-325 Mg) 1 tab Q4H PRN PO PAIN LESS THAN 5 ON SCALE Last administered on 07/13/17at 23:33; Start 07/12/17 at 10:30 Acetaminophen/ Hydrocodone Bitart ([place] 7.5-325 Mg) 2 tab Q4H PRN PO PAIN SCALE 5 TO 10 Last administered on 07/15/17at 08:50; Start 07/12/17 at 10:30 Acetaminophen (Tylenol) 650 mg Q6H PRN PO FEVER; Start 07/12/17 at 10:30 Tranexamic Acid / Sodium Chloride 100 ml @ 200 mls/hr UNSCH IV ; Start 07/12/17 at 10:30; Stop 07/12/17 at 10:45; Status DC Multivitamins/ Minerals Therapeutic (Theragran M Tab) 1 tab BID PO Last administered on 07/15/17at 08:49; Start 07/13/17 at 21:00; Stop 09/11/17 at 20:59 Ondansetron HCl (Zofran Inj) 4 mg Q6H PRN IVP NAUSEA OR VOMITING; Start at 10:30 Docusate Sodium (Colace) 100 mg BID PO Last administered on 07/14/17at 20:23; Start 07/13/17 at 21:00 Temazepam (Restoril) 15 mg HS PRN PO SLEEP; Start 07/12/17 at 10:30 Bacitracin (Bacitracin Oint Packet) 0.9 gm UNSCH X1 PRN TOP WOUND CARE; Start 07/14/17 at 10:15; Stop 07/16/17 at 10:14 Naloxone HCl (Narcan Inj) 0.4 mg UNSCH PRN IV PUSH RESPIRATORY RATE LESS THAN 10; Start 07/12/17 at 10:30 Diphenhydramine HCl (Benadryl Inj) 25 mg Q6H PRN IV PUSH ITCHING; Start at 10:30 Apixaban (Eliquis) 2.5 mg BID PO Last administered on 07/15/17at 08:49; Start at 10:00 Morphine Sulfate (Morphine Inj) 4 mg Q3H PRN IV PUSH PAIN>6 IF NOT TOLERATING PO; Start 07/12/17 at 10:30 Midazolam HCl (Versed Inj) 2 mg STK-MED ONCE .ROUTE ; Start 07/12/17 at 10:50; Stop 07/12/17 at 10:51; Status DC Fentanyl Citrate (fentaNYL INJ) 200 mcg STK-MED ONCE .ROUTE ; Start 07/12/17 at 10:50; Stop 07/12/17 at 10:51; Status DC Promethazine HCl (*PHENERGAN INJ PERIprocedural ONLY) 25 mg STK-MED ONCE .ROUTE Last administered on 07/12/17at 11:01; Start 07/12/17 at 11:01; Stop 07/12/17 at 11:02; Status DC Morphine Sulfate (*morphine INJ PERIprocedure ONLY) 10 mg STK-MED ONCE .ROUTE Last administered on 07/12/17at 11:40; Start 07/12/17 at 11:40; Stop 07/12/17 at 11: 41; Status DC Miscellaneous Information ALL NURSING DEPARTME... UNSCH PRN .XX SEE LABEL COMMENTS; Start 07/12/17 at 10:46; Stop 07/13/17 at 10:45; Status DC Lidocaine HCl (Xylocaine-Mpf 1% Inj) 5 ml STK-MED ONCE OTHER ; Start 07/12/17 at 12:00; Stop 07/13/17 at 13:41; Status DC Rocuronium [place] (Zemuron Inj) 50 mg STK-MED ONCE IV PUSH ; Start 07/12/17 at 12:00; Stop 07/13/17 at 13:41; Status DC Neostigmine Methylsulfate (Prostigmine Inj) 5 mg STK-MED ONCE IV PUSH ; Start at 12:00; Stop 07/13/17 at 13:41; Status DC Glycopyrrolate (Robinul Inj) 1 mg STK-MED ONCE IV PUSH ; Start 07/12/17 at 12:00 ; Stop 07/13/17 at 13:41; Status DC Ondansetron HCl (Zofran Inj) 4 mg STK-MED ONCE IV ; Start 07/12/17 at 12:00; Stop 07/13/17 at 13:41; Status DC Propofol (Diprivan 200 Mg/20 ml Inj) 200 mg STK-MED ONCE IV ; Start 07/12/17 at 12:00; Stop 07/13/17 at 13:41; Status DC Magnesium Hydroxide (Milk Of Magnesia Liq) 30 ml BID PRN PO FOR MILD CONSTIPATION Last administered on 07/14/17at 06:03; Start 07/13/17 at 22:45 A/P Assessment and Plan 72-year-old female with Right knee severe osteoarthritis s/p Right total knee arthroplasty Management per orthopedic surgery Continue current postop care, pain management accordingly PT to treat and eval WANTS TO GO TO SNF CONSTIPATION PATIENT TOOK HER HOME MEDICATIONS HOPE TO NOT NEED OTHER MEDICATIONS FOR THIS Diabetes type 2 Continue with metformin Hypertension Continue with Lopressor DVT prophylaxis: Stanislav HOPEFULLY TO SNF TODAY Discharge Planning MEDICALLY CLEARED FOR DC WHEN BED AVAILABLE AT SNF Garrett Esquivel DO Jul 15, 2017 12:18
[2017-07-15] MEDS ORDERED: MAGN30S PO (12:20)
[2017-07-15] MEDS ORDERED: DOCU1CAP39 PO (12:20)
== END 2017-07-15 17:07 | DRG 470 ==
LOC: HSDI 05:55 → N06B 15:38
PROVIDERS: ADMIT Surgery; ATTEND Surgery
PROC: 0MNN0ZZ Release Right Knee Bursa and Ligament, Open Approach (ICD-10-PCS; 2017-07-12)
PROC: 3E0T3BZ Introduction of Anesthetic Agent into Peripheral Nerves and Plexi, Percutaneous Approach (ICD-10-PCS; 2017-07-12)
PROC: 0SRC0J9 Replacement of Right Knee Joint with Synthetic Substitute, Cemented, Open Approach (ICD-10-PCS; principal; 2017-07-12 07:54)
DX: M17.11 Unilateral primary osteoarthritis, right knee (principal); Z68.42 Body mass index [BMI] 45.0-49.9, adult; E11.9 Type 2 diabetes mellitus without complications; E66.01 Morbid (severe) obesity due to excess calories; Z79.84 Long term (current) use of oral hypoglycemic drugs; F41.9 Anxiety disorder, unspecified; I10 Essential (primary) hypertension; K59.00 Constipation, unspecified
CPT/HCPCS: 73560; 82948; 85014; 85018; 86850; 86900; 86901; 94150; C1776; C9290; J0690; J1100; J2250; J2270; J2405; J2550; J2710; J3010; J3370; J7050; J7120; L1830